=== PATIENT | female | born 1975 | race Caucasian/White ===

== ENCOUNTER 2018-04-12 19:01 | Emergency (ER) | payer MEDICAID ==
[~2018-04-12] VITALS: Ht 170.2 cm; Wt 58.2 kg
[~2018-04-12 19:01] MED LIST: ACETAMINOPHEN PO; ALLO300T PO; DOXY100T PO; HYDR25TA11 PO; HYDROCODONE PO
[2018-04-12] MEDS ORDERED: OXYcodone/APAP 5/325MG TABLET ONE (19:13)
[2018-04-12] MEDS ORDERED: PROPARACAINE OPHTH 0.5%, 15ML ONE (19:13)
[2018-04-12] MEDS ORDERED: ONDANSETRON ODT 4 MG ONE (19:13)
[2018-04-12] MEDS ORDERED: HYDROcodone/APAP 5/325 TABLET ONE (19:20)
[2018-04-12] MEDS ORDERED: FLUORESCEIN OPHTHALMIC 1 MG STRIP EACHEYE ONE (19:30)
[2018-04-12] MEDS ORDERED: PROPARACAINE OPHTH 0.5%, 15ML EACHEYE ONE (19:30)
[2018-04-12] MEDS ORDERED: OXYcodone/APAP 5/325MG TABLET PO ONE (19:30)
[2018-04-12] MEDS ORDERED: ONDANSETRON ODT 4 MG PO ONE (19:30)
[2018-04-12] MEDS ORDERED: HYDROcodone/APAP 5/325 TABLET PO ONE (19:30)
[2018-04-12 20:43] VITALS: BP 150/88
== END 2018-04-12 21:25 | disposition home or self-care (01) ==
LOC: ED 20:47
DX: B02.33 Zoster keratitis (principal); I10 Essential (primary) hypertension; F17.210 Nicotine dependence, cigarettes, uncomplicated
CPT/HCPCS: 99283; Q0162